=== PATIENT | male | born 1980 | race Caucasian/White ===

== ENCOUNTER 2024-12-12 21:23 | Emergency (ER) | payer OTHER, SELFPAY ==
--- NOTE | ~2024-12-12 | CT_ITS ---
EXAMINATION: CT BRAIN W/O DATE: 12/13/2024 00:37 INDICATION: Arm tingling on the right. TECHNIQUE: Computed tomography (CT) of the head was performed without intravenous contrast. The dose- length product was 681.00 mGy-cm. Automated exposure control and iterative reconstruction technique w ere employed. COMPARISON: No prior studies for comparison. FINDINGS: Normal brain parenchymal volume for age. Normal palacios-white differentiation. No acute intrac ranial hemorrhage, infarction, mass or mass effect. No ventriculomegaly or midline shift. Midline sagittal images demonstrate a normal corpus callosum, c raniovertebral junction and sella turcica. Basilar cisterns are patent. There is mucosal thickening of the maxillary, ethmoid, sphenoid sinuses. Mastoids are pneumatized. No depressed skull fractures. IMPRESSION: 1. No acute intracranial abnormality. 2: Mild-moderate sinus disease. Reviewed, dictated and finalized at location A.
--- OUTSIDE RECORDS SUMMARY | 2024-12-12 21:25 | XMS_ITS ---
Author Organization [facility] Address [address] [place] [address] Phone Care Team Providers Care Gis Analyst Developer Name Role Phone Tahira Camara Primary Care Provider [phone] [facility] Status:Enrolled (Active) Start date:06/01/2024 Enrollment date:06/01/2024 Related social drivers of health:Intimate Partner Violence, Social Connections, Alcohol Use, Tobacco Use, Financial Resource Strain,Depression, Stress, Physical Activity, Food Insecurity, Transportation Needs, Housing Stability, Utilities Continued Care and Services Coordination
--- OUTSIDE RECORDS SUMMARY | 2024-12-12 21:25 | XMS_ITS | Clinical Summary ---
Author Organization [facility] [address] Address [address] [place] [address] Phone Care Team Providers Care Shrink Pit Operator Name Role Phone DotyNohelia Rose Marie BONILLA Primary Care Provider [phone] Allergies Active Allergy Reactions Criticality Noted Date Comments Cornflower Diarrhea Low 09/16/2019 Peanut Agitation Low 09/06/2019 Poison Genesis Extract Hives High 09/06/2019 Seeds Agitation Low 09/06/2019 Wheat Agitation Low 09/06/2019 Medications cyclobenzaprine (FLEXERIL) 10 mg tablet Take 1 tablet (10 mg total) by mouth 2 (two) times a day as needed for muscle spasms 20 tablet 11/16/2022 Active naproxen (NAPROSYN) 375 mg tabletIndication s:Pain Take 1 tablet (375 mg total) by mouth 2 (two) times a day with meals 20 tablet 11/16/2022 Active Active Problems Problem Noted Date Diagnosed Date Internal hemorrhoids 09/29/2019 Assessment & Plan (09/29/2019 10:20 AM CDT): Blood in stool occurring due to internal hemorrhoids. These were treated with thermal therapy and no blood since procedure. Rectal bleeding 09/06/2019 Assessment & Plan (09/29/2019 10:20 AM CDT): Pt had colonoscopy and thermal therapy used on int hemorrhoids during procedure. Pt has not had any blood in stool since the colonoscopy. Advised to add fiber supplement daily and can use hydrocortisone suppositories prn if hemorrhoids/bleeding occurs. If these do not work to stop bleeding or other red flag signs occur, he should f/u in our office. Pt verbalized understanding. Assessment & Plan (09/06/2019 2:06 PM CDT): Pt says bleeding started last Thursday (08/30) and occurred with each of his BM's until Thursday. Blood was bright red. , he had large amount of blood and that is when he decided to go to ER. Workup in ER was overall unremarkable. Will schedule colonoscopy and f/u 1-2 weeks after procedure. Family history of colon cancer 09/06/2019 Overview (09/06/2019): Added automatically from request for surgery [id number] Assessment & Plan (09/06/2019 2:09 PM CDT): Pt does have multiple relatives on his dad's side that has colon cancer. He thinks possibly uncle or great uncle had it, but he does not speak to his dad or dad's side of the family so he is not positive. Multiple people on mother's side have had adenoma polyps. Class 2 obesity due to exces s calories without serious comorbidity with body mass index (BMI) of 35.0 to 35.9 in adult 09/06/2019 BMI 35.0-35.9,adult 09/06/2019 Mixed hyperlipidemia 12/29/2017 Impingement syndrome of right shoulder 8 [place]RI[place] on CPAP 03/12/2017 Tobacco use disorder 01/15/2017 Resolved Problems Problem Noted Date Diagnosed Date Resolved Date Abdominal discomfort, bilate ral lower quadrant 09/06/2019 09/29/2019 Assessment & Plan (09/29/2019 10:20 AM CDT): Resolved since last appointment. Assessment & Plan (09/06/2019 2:07 PM CDT): Had very mild pain in lower abdomen when he had bleeding. Pt says it was a 1 (0- 10 scale). He says he is not having this pain anymore, just a weird feeling in lower abdomen. Upon palpation, patient has very mild tenderness in lower abdomen. Surgical History Surgery Date Site/Laterality Comments ACROMIOPLASTY PYLOROMYOTOMY Medical History Medical History Date Comments History of blood clots legs Depression Sleep apnea Family History Medical History Relation Name Comments Alcohol abuse Other Arthritis Other Blood Clot Other Cancer Other Colon cancer Other Diabetes Other Heart disease Other Hypertension Other Mental illness Other Stroke Other Relation Name Status Comments Other Great uncle on fathers side. 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 Gender Identity Not on file Sexual Orientation Not on file Obstetrics History Last Filed Vital Signs Vital Sign Reading Time Taken Comments Blood Pressure 109/68 11/15/2022 10:00 PM CDT Pulse 68 11/15/2022 10:00 PM CDT Temperature 37.1 C (98.8 F) 11/15/2022 9:24 PM CDT Respiratory Rate 17 11/15/2022 9:24 PM CDT Oxygen Saturation 99% 11/15/2022 10:00 PM CDT Inhaled Oxygen Concentration - - Weight 90.7 kg (200 lb) 11/15/2022 9:24 PM CDT Height 167.6 cm (5' 6) 11/15/2022 9:24 PM CDT Body Mass Index 32.28 11/15/2022 9:24 PM CDT Plan of Treatment Health Maintenance Due Date Last Done Comments Depression Screening 1982 Hepatitis C Screening 1982 Varicella Vaccines (1 of 2 - 13+ 2-dose series) 1994 Hepatitis B Screening 02/11/2000 Regular Well Visit/Exam 18-64 02/11/2000 Pneumococcal vaccine <65 (1 of 2 - PCV) 2001 HPV Vaccines (1 - 3-dose SCDM series) 2009 Influenza Vaccine (#1) 2025 DTaP/Tdap/Td Vaccine (2 - Td or Tdap) 01/15/2027 Insurance [facility] Address: [facility] [address] [place] [address] [facility] Advance Directives For more information, please contact: [phone] * Full Code (Latest Code Status on File) Date Activated Date Inactivated Comments 09/19/2019 11:08 AM 09/19/2019 5:55 PM * Full Code Date Activated Date Inactivated Comments 09/19/2019 11:08 AM 09/19/2019 11:08 AM Care Teams Shrink Pit Operator Relationship Specialty Start Date End Date Nohelia Doty NP [address] [place] [address] PCP - General 07/01/19
--- OUTSIDE RECORDS SUMMARY | 2024-12-12 21:25 | XMS_ITS | Clinical Summary ---
Author Organization [facility] Address [address] [place] [address] Phone Care Team Providers Care Quality Assurance Lead Name Role Phone Tahira Camara Primary Care Provider [phone] Allergies No known active allergies Medications tobramycin (TOBREX) 0.3 % Solution Place 1-2 Drops in left eye every 4 hours. 1 Bottle 0 7 Active Additional Information Patient not taking.Reported on 01/14/2018 clotrimazole (LOTRIMIN) 1 % Cream Apply as needed. 7 Active fluticasone (FLONASE) 50 MCG/ACT Suspension 8 Active ketorolac (TORADOL) 10 MG Tablet Take 1 Tab by mouth every 6 hours as needed for Pain. 20 Tab 8 Active Additional Information Patient not taking.Reported on 01/14/2018 HYDROcodone-nette taminophen (NORCO) 5-325 MG Tablet Take 1 Tab by mouth every 6 hours as needed for Pain. 10 Tab 8 Active Additional Information Patient not taking.Reported on 01/14/2018 Cyclobenzaprine HCl (FLEXERIL PO) Take 5 mg by mouth daily. Active NAPROXEN PO Take by mouth 2 times daily. Active HYDROcodone-nette taminophen (NORCO) 5-325 MG Tablet Take 1-2 Tabs by mouth every 6 hours as needed for Pain. 40 Tab 8 Active Additional Information Patient not taking.Reported on 01/14/2018 ketorolac (TORADOL) 10 MG Tablet Take 1 Tab by mouth every 8 hours as needed for Moderate or more severe pain. 9 Tab 8 Active Additional Information Patient not taking.Reported on 01/14/2018 diazePAM (VALIUM) 5 MG Tablet Take 1 Tab by mouth every 8 hours as needed for Muscle spasms. 10 Tab 8 Active Additional Information Patient not taking.Reported on 01/14/2018 buPROPion, Smoking Deter, (ZYBAN) 150 MG TABLET SR 12 HR 8 Active simvastatin (ZOCOR) 10 MG Tablet 8 Active Active Problems Problem Noted Date Diagnosed Date Impingement syndrome of right shoulder 8 [place]RI[place] on CPAP 03/12/2017 Non morbid obesity 03/12/2017 Tobacco use disorder 03/12/2017 Family History Medical History Relation Name Comments Depression Brother Alcohol Abuse Father Depression Father Asthma Mother Attention Deficit Hyperactivity Disorder Mother Heart Disease Mother Hypertension Mother Other-comment Mother hypercholester olemia Depression Sister Relation Name Status Comments Brother Father Alive Mother Alive Sister Social History Tobacco Use Types Packs/Day Years Used Date Smoking Tobacco: Every Day Cigarettes 0.5 22 Smokeless Tobacco: Never Tobacco Cessation:Ready to Q uit: Yes Alcohol Use Standard Drinks/Week Comments Yes 0 (1 standard drink = 0.6 oz pur e alcohol) RARELY Sex and Gender Information Value Date Recorded Sex Assigned at Not on file Legal Sex Male 11:41 PM CDT Gender Identity Not on file Sexual Orientation Not on file Last Filed Vital Signs Vital Sign Reading Time Taken Comments Blood Pressure 130/84 01/14/2018 2:15 PM CDT Pulse 76 01/14/2018 2:15 PM CDT Temperature 37.1 C (98.8 F) 01/14/2018 2:15 PM CDT Respiratory Rate 16 01/14/2018 2:15 PM CDT Oxygen Saturation 98% 01/14/2018 2:15 PM CDT Inhaled Oxygen Concentration - - Weight 99.8 kg (220 lb) 01/14/2018 2:15 PM CDT Height 165.1 cm (5' 5) 01/14/2018 2:15 PM CDT Body Mass Index 36.61 01/14/2018 2:15 PM CDT Plan of Treatment Health Maintenance Due Date Last Done Comments Hepatitis C Virus (HCV) Screening 1982 Hepatitis B Immunization (1 of 3 - 19+ 3-dose series) 2001 Human Papillomavirus (HPV) Immunization (1 - 3-dose SCDM series) 2009 SARS-COV-2 Immunization (2023- season) 2024 Influenza Immunization (#1) 2025 Respiratory Syncytial Virus (RSV) Immunization (Adult) (1 - 1-dose 75+ series) 2057 DTaP/Tdap/Td Immunization Discontinued 01/15/2017 TdaP Immunization Completed 01/15/2017 Meningococcal Immunization (ACWY) Aged Out No longer eligible based on patient's age to complete this topic Pneumococcal Immunization Combined Aged Out No longer eligible based on patient's age to complete this topic Rotavirus Immunization Aged Out No lo nger eligible based on patient's age to complete this topic Insurance [place]ID [place] Care Teams Quality Assurance Lead Relationship Specialty Start Date End Date Tahira Camara PA [address] [address] PCP - General Adult Medicine 02/02/17
[2024-12-12 21:26] VITALS: BP 145/80; PULSE 85; RESP 16; TEMP 36.4; O2SAT 97
--- OUTSIDE RECORDS SUMMARY | 2024-12-13 00:13 | XMS_ITS ---
Author Organization [facility] Address [address] [place] [address] Phone Care Team Providers Care Supervisor Intermediates Name Role Phone Tahira Camara Primary Care Provider [phone] [facility] Status:Enrolled (Active) Start date:06/01/2024 Enrollment date:06/01/2024 Related social drivers of health:Intimate Partner Violence, Social Connections, Alcohol Use, Tobacco Use, Financial Resource Strain,Depression, Stress, Physical Activity, Food Insecurity, Transportation Needs, Housing Stability, Utilities Continued Care and Services Coordination
--- OUTSIDE RECORDS SUMMARY | 2024-12-13 00:13 | XMS_ITS | Clinical Summary ---
Author Organization [facility] Address [address] [place] [address] Phone Care Team Providers Care Psychology Lecturer Name Role Phone Tahira Camara Primary Care Provider [phone] Allergies No known active allergies Medications tobramycin [...] this topic Insurance MEDICAID [place] Care Teams Psychology Lecturer Relationship Specialty Start Date End Date Tahira Camara PA [address] [address] PCP - General Adult Medicine 02/02/17
--- OUTSIDE RECORDS SUMMARY | 2024-12-13 00:13 | XMS_ITS | Clinical Summary ---
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 Gender Identity Not on file Sexual Orientation [...] (2 - Td or Tdap) 01/15/2027 Insurance [facility] Advance Directives For more information, please contact: [phone] * Full Code (Latest Code Status on File) Date Activated Date Inactivated Comments 09/19/2019 11:08 AM 09/19/2019 5:55 PM * Full Code Date Activated Date Inactivated Comments 09/19/2019 11:08 AM 09/19/2019 11:08 AM Care Teams Agricultural Production Engineer Relationship Specialty Start Date End Date Nohelia Doty NP [address] [place] [address] PCP - General 07/01/19
--- NOTE | 2024-12-13 00:21 | ECG_ITS ---
Test Date: 2024-12-13 00:57:36 Measurements Intervals [place] Rate: 66 P: 39 [place]: 157 QRS: 54 QRSD: 89 T: 35 QT: 391 QTc: 411 Interpretive Statements SINUS RHYTHM DELAYED PRECORDIAL R/S TRANSITION BORDERLINE ECG No previous ECG available for comparison Electronically Signed On 12-13-2024 06:09:48 CDT by Leonardo Auguste D.O.
[2024-12-13 00:38] LABS: Hematocrit 45.7 % (42.0-52.0); Hemoglobin 15.4 g/dL (14.0-18.0); Immature Granulocyte Percent A 0.4 % (0-0.5); Lymphocytes Absolute Auto 2.60 K/mm3 (0.9-3.2); Mean Corpuscular HGB Conc 33.7 g/dl (32-36); Mean Corpuscular Hemoglobin 32.3 pg (26-34); Mean Corpuscular Volume 95.8 fl (80-100); Nucleated Red Blood Cells Absolute Auto 0.000 K/mm3 (0.0-0.012); Nucleated Red Blood Cells Perc 0.0 % (0.0-0.2); Platelet Count Result 180 k/mm3 (150-375); Red Blood Count 4.77 M/mm3 (4.6-6.20); White Blood Count 7.5 K/mm3 (4.5-10.0)
[2024-12-13 00:48] VITALS: BP 124/79; PULSE 68; RESP 15; O2SAT 96
[2024-12-13 00:59] LABS: Alanine Aminotransferase 24 U/L (6-50); Albumin Level 4.5 g/dL (3.5-5.1); Alkaline Phosphatase 56 U/L (38-126); Anion Gap 8 mmol/L (4-12); Aspartate Amino Transferase 29 U/L (17-59); Bilirubin,Total 0.3 mg/dL (0.2-1.3); Blood Urea Nitrogen 19 mg/dL (9-20); Calcium 9.5 mg/dL (8.4-10.2); Carbon Dioxide 20 mmol/L (22-30); Chloride 109 mmol/L (98-107); Estimated CRCL calculation 113 ml/min; Estimated Glomerular Filt Rate > 60; Glucose 98 mg/dL (65-110); Lipase 140 U/L (23-300); Potassium 4.5 mmol/L (3.4-5.0); Sodium 137 mmol/L (137-145); Total Protein 7.3 g/dL (6.3-8.2)
[2024-12-13 01:11] LABS: Troponin I < 0.012 ng/mL (0.000-0.034)
[2024-12-13 01:23] LABS: INR 0.9; Prothrombin Time 12.7 Seconds (11.1-14.7)
[2024-12-13 01:24] LABS: Partial Thromboplastin Time 27.4 Seconds (22.3-36.8)
--- NOTE | 2024-12-13 01:43 | ED.UPPEXIN ---
HPI - Extremity Injury (Upper) General Chief Complaint: Extremity Injury, Upper Stated Complaint: weird feeling of heaviness/tingling in R arm Time Seen by Provider: 12/12/24 23:23 History of Present Illness HPI narrative: 44-year-old otherwise healthy male with no chronic medical conditions presenting to the emergency department with some paresthesias in his right upper extremity that occurred at the elbow down to his fingertips. 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 States he felt like a heaviness and numbness in his fingers but did not have any banana ripening room supervisor strength loss or weakness. Endorsed to headaches shortly thereafter. No nausea, vomiting, fever, chills. No chest pain shortness a breath. He was concerned about his heart even though he has no cardiac risk factors or cardiac disease to his knowledge. Did not take any prescription medications. He was otherwise in his normal state of health. No history of strokes, TIAs or any neurological events prior. Denies any symptoms here in triage. Otherwise well-appearing with normal vitals in triage. Related Data Allergies Allergy/AdvReac Type Severity Reaction Status Date / Time No Known Allergies Allergy Verified 12/12/24 21:24 Review of Systems Review of Systems: As reviewed above in HPI Exam Narrative: GENERAL: [Well-appearing, well-nourished, and in no acute distress.] HEAD: [Normocephalic, atraumatic.] EYES: [PERRLA and EOMI.] ENT: Nares clear, no rhinorrhea or epistaxis. Mucous membranes moist. NECK: Supple. CHEST: [Clear to auscultation. No respiratory distress.] HEART: [Regular rate and rhythm]. No murmur heard. [Normal peripheral pulses.] ABDOMEN: [Soft, nondistended], [nontender], [No rigidity or guarding] EXTREMITIES: Normal range of motion. [No edema.] Full banana ripening room supervisor strength 5/5, no restricted range of motion, able to oppose each digit, able to make a thumbs up and okay sign. No traumatic injuries identified. SKIN: Warm, dry, no rash. NEURO: [No focal deficits]. Alert and oriented [x3.] PSYCH: [Normal mood and affect.] Course Vital Signs Vital signs: Vital Signs Temperature 36.4 C 12/12/24 21:26 Pulse Rate 85 08/11/25 21:26 Respiratory Rate 16 12/12/24 21:26 Blood Pressure 145/80 H 12/12/24 21:26 Pulse Oximetry 97 12/12/24 21:26 Oxygen Delivery Room Air 12/12/24 21:26 Temperature 36.4 C 12/12/24 21:26 Pulse Rate 68 12/13/24 00:48 Respiratory Rate 15 12/13/24 00:48 Blood Pressure 124/79 12/13/24 00:48 Pulse Oximetry 96 12/13/24 00:48 Oxygen Delivery Room Air 12/12/24 21:26 MDM - Extremity Injury (Upper) MDM Narrative Medical decision making narrative: 44-year-old otherwise healthy male with no chronic medical conditions presenting to the emergency department with some paresthesias in his right upper extremity that occurred at the elbow down to his fingertips. 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 States he felt like a heaviness and numbness in his fingers but did not have any banana ripening room supervisor strength loss or weakness. Endorsed to headaches shortly thereafter. No nausea, vomiting, fever, chills. No chest pain shortness a breath. He was concerned about his heart even though he has no cardiac risk factors or cardiac disease to his knowledge. Did not take any prescription medications. He was otherwise in his normal state of health. No history of strokes, TIAs or any neurological events prior. Denies any symptoms here in triage. Otherwise well-appearing with normal vitals in triage. Patient is overall well-appearing with normal vital signs here. No tachycardia, fever, hypoxia. He has no chronic medical conditions. He has an unremarkable physical examination with normal neurological assessment in normal cardiovascular assessment. Symptomatology seemed isolated to his elbow down to his fingers potentially raising suspicion for cubital tunnel nerve impingement given the repetitive motions and heavy lifting he was doing today. Less likely neurological in nature such as stroke or TIA given his very short-lived symptoms without any appreciable deficits and normal vital signs without any risk factors. Patient was concerned and came to ER. Laboratory studies and EKG and CT of the head was obtained for further evaluation. CT of the head shows no acute intracranial hemorrhage mass effect shift or acute findings. Workup shows no leukocytosis or anemia. Normal platelet count. Normal coagulation panel. Normal electrolytes, normal renal function hepatic function and negative troponin. EKG is unremarkable. Patient has no symptoms and can safely be discharged home at this time with regular primary care provider follow-up and return precautions. Medical Records Attestation: I reviewed the patient's medical records. Lab Data Attestation: I reviewed the patient's lab results. 12/13/24 00:32 12/13/24 00:32 Labs: Lab Results 12/13/24 12/13/24 Range/Units 00:32 01:06 WBC 7.5 (4.5-10.0) K/mm3 RBC 4.77 (4.6-6.20) M/mm3 Hgb 15.4 (14.0-18.0) g/dL Hct 45.7 (42.0-52.0) % MCV 95.8 (80-100) fl MCH 32.3 (26-34) pg MCHC 33.7 (32-36) g/dl RDW 13.0 (11.5-14.5) % Plt Count 180 (150-375) k/mm3 MPV 10.2 (7.4-10.4) fl Immature Gran % (Auto) 0.4 (0-0.5) % Neut % (Auto) 51.4 (45.5-73.1) % Lymph % (Auto) 34.7 (18.3-44.2) % Mcleod % (Auto) 8.7 H (2.6-8.5) % Eos % (Auto) 4.3 (0-4.4) % Baso % (Auto) 0.5 (0.2-1.2) % Lymph # (Auto) 2.60 (0.9-3.2) K/mm3 Mcleod # (Auto) 0.7 H (0.1-0.6) K/mm3 Eos # (Auto) 0.3 (0-0.3) K/mm3 Baso # (Auto) 0.0 (0.0-0.1) K/mm3 Abs Immat Gran (auto) 0.03 (0.00-0.031) K/mm3 Absolute Neuts (auto) 3.9 (1.3-6.7) K/mm3 Absolute Nucleated RBC 0.000 (0.0-0.012) K/mm3 Nucleated RBC % 0.0 (0.0-0.2) % PT 12.7 (11.1-14.7) Seconds INR 0.9 APTT 27.4 (22.3-36.8) Seconds Sodium 137 (137-145) mmol/L Potassium 4.5 (3.4-5.0) mmol/L Chloride 109 H (98-107) mmol/L Carbon Dioxide 20 L (22-30) mmol/L Anion Gap 8 (4-12) mmol/L BUN 19 (9-20) mg/dL Creatinine 0.79 (0.7-1.3) mg/dL Estim Creat Clear Calc 113 ml/min Estimated GFR > 60 (59 - ) Glucose 98 (65-110) mg/dL Calcium 9.5 (8.4-10.2) mg/dL Total Bilirubin 0.3 (0.2-1.3) mg/dL AST 29 (17-59) U/L ALT 24 (6-50) U/L Alkaline Phosphatase 56 (38-126) U/L Troponin I < 0.012 (0.000-0.034) ng/mL Total Protein 7.3 (6.3-8.2) g/dL Albumin 4.5 (3.5-5.1) g/dL Lipase 140 (23-300) U/L Imaging Data Attestation: I personally reviewed and interpreted this imaging study as follows: My impression: No acute findings Discharge Plan Discharge Clinical Impression: Right hand paresthesia Patient Disposition: Home Condition: Stable Instructions: Antibiotic Form, Paresthesia (ED) Additional Instructions: All of your laboratory studies, imaging, cardiovascular assessment and neurological assessments are normal here. No signs of any heart attack or stroke. No acute concerning findings on your workup. Follow-up with your regular primary care provider. Return with any recurrent symptoms or emergent concerns. Patient Language: Urdu Follow-up/Referrals: PHYSICIAN,FACILITIES CUSTODIAN [Primary Care Provider] - Time of Disposition: 01:47
[2024-12-13 01:59] VITALS: BP 113/72; PULSE 86; RESP 16; O2SAT 96
== END 2024-12-13 01:59 | disposition home or self-care (01) ==
PROVIDERS: Emergency Provider Student in an Organized Health Care Education/Training Program
DX: R20.2 Paresthesia of skin (principal); R94.31 Abnormal electrocardiogram [ECG] [EKG]
CPT/HCPCS: 36415; 70450; 80053; 83690; 84484; 85025; 85610; 85730; 93005; 99284